=== PATIENT | male | born 1995 | race African-American/Black ===

== ENCOUNTER 2017-06-23 08:52 | Emergency (ER) | payer SELFPAY ==
[~2017-06-23] VITALS: Ht 177.8 cm; Wt 70.5 kg
[2017-06-23 08:53] VITALS: BP 128/76; PULSE 53; RESP 14; TEMP 98.4; O2SAT 98
--- NOTE | 2017-06-23 09:38 | PD ---
HPI Chief Complaint: ENT Complaint Time Seen by Provider: 09:17 Travel History International Travel<30 days: No Contact w/Intl Traveler<30days: No Traveled to known affect area: No History of Present Illness HPI 21-year-old male presents to the emergency Department with complaint of a left clocked ear for the past 2-3 days. Denies ear pain. Says it feels like a pressure and he can feel it when he eats. Denies cough, sore throat, fevers, nasal congestion. Has not taken any medications or tried any treatments to alleviate his symptoms. Symptoms are mild in severity. No known relieving or aggravating factors. Does not have a primary care provider. Denies significant past medical history. No known allergies. No other medical complaints. No other modifying factors or associated signs and symptoms. Allergies-Medications (Allergen,Severity, Reaction): Coded Allergies: No Known Allergies (Verified Allergy, Unknown, 06/23/17) Reported Meds & Prescriptions Reported Meds & Active Scripts Active No Active Prescriptions or Reported Medications Review of Systems Except as stated in HPI: all other systems reviewed are Neg Physical Exam Narrative GENERAL: Well-nourished, well-developed black male patient, in no acute distress ; afebrile, nontoxic-appearing SKIN: Warm and dry. No rash. HEAD: Atraumatic. Normocephalic. EYES: Pupils equal and round. No scleral icterus. No injection or drainage. ENT: Mucosa pink and moist. No erythema or exudates. No uvular edema. No uvular , palatal, or tonsillar deviation. Airway patent. EARS: Bilateral pinnae and external canals appear within normal limits. To visualize a small area the right TM and it appears clear, otherwise there is a large amount of cerumen. The left TM is not visualized secondary to cerumen impaction. NECK: Trachea midline. No lymphadenopathy. CARDIOVASCULAR: Regular rate. RESPIRATORY: No accessory muscle use. GASTROINTESTINAL: Flat. MUSCULOSKELETAL: No obvious deformities. No clubbing. No cyanosis. No edema. NEUROLOGICAL: Awake and alert. Oriented 3. No obvious cranial nerve deficits. Motor grossly within normal limits. Normal speech. Moves all extremities. 5/5 strength to all extremities. PSYCHIATRIC: Appropriate mood and affect; insight and judgment normal. Data Data Last Documented VS Vital Signs Date Time Temp Pulse Resp B/P (MAP) Pulse Ox O2 Delivery O2 Flow Rate FiO2 06/23/17 08:53 98.4 53 14 128/76 (93) 98 Room Air MDM Medical Screen Exam Complete: Yes Emergency Medical Condition: No Differential Diagnosis Cerumen impaction Narrative Course 21-year-old male with left ear cerumen impaction. No other complaints. Discussed [id number] earwax remover and also ability to go to the school nurse at [facility]. Vital signs are stable and the patient is stable for outpatient follow-up and treatment. The patient has no urgent or emergent medical complaints. There is no emergent or urgent medical need at this time. I instructed the patient to follow up with [facility] primary care provider. A medical screening exam was performed: At the time of evaluation the presenting medical condition was determined not to be of an emergent nature. The patient was given the option of receiving additional care, but declined. Patient was given options for additional community resources from which to obtain care. The Patient Has Been advised to seek medical attention for their presenting complaint. The patient has been advised to return to the ER at any time if an emergent condition develops. Primary Impression: Encounter for medical screening examination Scripts No Active Prescriptions or Reported Meds Condition: Stable Alana Sweet Jun 23, 2017 09:38
== END 2017-06-23 09:46 | disposition left against medical advice (07) ==
LOC: NEPD 08:52
DX: H61.22 Impacted cerumen, left ear (principal)
CPT/HCPCS: 99281